=== PATIENT | female | born 1955 | race African-American/Black ===

== ENCOUNTER 2016-09-03 10:17 | Emergency (ER) | payer SELFPAY ==
[~2016-09-03] VITALS: Ht 175.3 cm; Wt 78.1 kg
[2016-09-03] MEDS ORDERED: ATORVASTATIN CA20 MG PO (10:45)
[2016-09-03] MEDS ORDERED: MOBIC7.5 MG PO (11:02)
[2016-09-03 11:42] VITALS: BP 123/87
== END 2016-09-03 11:43 | disposition home or self-care (01) ==
LOC: EME 10:17
PROC: 2W39X1Z Immobilization of Left Upper Extremity using Splint (ICD-10-PCS; principal; 2016-09-03)
DX: S63.501A Unspecified sprain of right wrist, initial encounter (principal); W18.30XA Fall on same level, unspecified, initial encounter; Y92.480 Sidewalk as the place of occurrence of the external cause
CPT/HCPCS: 73110; 99281; 99283

== ENCOUNTER 2016-09-07 14:10 | Emergency (ER) | payer SELFPAY ==
[~2016-09-07] VITALS: Ht 175.3 cm; Wt 78.3 kg
[~2016-09-07 14:10] MED LIST: ATORVASTATIN CA20 MG PO; MOBIC7.5 MG PO
[2016-09-07] MEDS ORDERED: NAPROSYN500 MG PO (15:20)
[2016-09-07 15:49] VITALS: BP 130/91
== END 2016-09-07 15:49 | disposition home or self-care (01) ==
LOC: EME 14:10
PROC: 2W38X1Z Immobilization of Right Upper Extremity using Splint (ICD-10-PCS; principal; 2016-09-07)
DX: M25.531 Pain in right wrist (principal); S63.501A Unspecified sprain of right wrist, initial encounter; Z91.19 Patient's noncompliance with other medical treatment and regimen; W19.XXXD Unspecified fall, subsequent encounter
CPT/HCPCS: 99281; 99283

== ENCOUNTER 2016-09-09 14:05 | Emergency (ER) | payer SELFPAY ==
[~2016-09-09] VITALS: Ht 175.3 cm; Wt 78.5 kg
[~2016-09-09 14:05] MED LIST changes: +NAPROSYN500 MG PO
[2016-09-09 14:11] VITALS: BP 133/91
[2016-09-09] MEDS ORDERED: FLEXERIL10 MG PO (16:06)
== END 2016-09-09 16:31 | disposition home or self-care (01) ==
LOC: EME 14:05
PROC: 2W3CX1Z Immobilization of Right Lower Arm using Splint (ICD-10-PCS; principal; 2016-09-09)
DX: M65.4 Radial styloid tenosynovitis [de Quervain] (principal); Z91.81 History of falling; Z91.19 Patient's noncompliance with other medical treatment and regimen
CPT/HCPCS: 73110; 99281; 99284; J1885

== ENCOUNTER 2017-02-05 13:25 | Emergency (ER) | payer OTHER ==
[~2017-02-05] VITALS: Ht 175.3 cm; Wt 78.9 kg
[~2017-02-05 13:25] MED LIST changes: +FLEXERIL10 MG PO
[2017-02-05 15:17] LABS: ADD MIUA? YES; BILIRUBIN NEGATIVE; BLOOD NEGATIVE; COLOR YELLOW ((YELLOW)); GLUCOSE (STRIP) NEGATIVE; KETONES NEGATIVE; LEUKOCYTES SMALL; NITRITE NEGATIVE; PROTEIN (STRIP) NEGATIVE; SPECIFIC GRAVITY 1.026 (1.000-1.030); UROBILINOGEN 0.2 MG/DL (0.2-1.0)
[2017-02-05 15:56] LABS: BACTERIA NONE SEEN /HPF; EPITHELIAL CELLS 1+ /HPF; MUCUS TRACE /LPF; UCUL ADDED? NO; WHITE BLOOD CELLS 0-5 /HPF (0-5)
[2017-02-05] MEDS ORDERED: TRAMADOL HCL50 MG PO (16:37)
[2017-02-05] MEDS ORDERED: SKELAXIN800 MG PO (16:37)
[2017-02-05 16:45] VITALS: BP 145/65
== END 2017-02-05 16:45 | disposition home or self-care (01) ==
LOC: RME 13:25 → EME 13:25 → RME 16:45
PROVIDERS: Physician Assistant
DX: R07.9 Chest pain, unspecified (principal); R31.9 Hematuria, unspecified; E78.5 Hyperlipidemia, unspecified
CPT/HCPCS: 71020; 81003; 99281; 99284; J1885